=== PATIENT | male | born 1995 | race Caucasian/White ===

== ENCOUNTER 2023-10-23 00:04 | Inpatient (IN) | payer OTHER ==
[~2023-10-23] VITALS: Ht 185.4 cm; Wt 77.1 kg
[2023-10-23] VITALS (16 sets, daily range): BP systolic 95–133; BP diastolic 43–96
[2023-10-23] MEDS ORDERED: Ondansetron HCl 2 MG / ML 2ML Vial IV ONE (00:25)
[2023-10-23] MEDS ORDERED: Ketorolac Tromethamine 30mg Vial IV ONE (00:25)
[2023-10-23] MEDS ORDERED: Colchicine 0.6 MG TAB PO ONE (00:25)
[2023-10-23 00:39] LABS: Calcium, Ionized (POC) 1.09 mmol/L (1.10-1.46); Chloride (POC) 103 mmol/L (98-108); Glucose (ISTAT POC) 127 mg/dL (70-99); Hemoglobin (POC) 14.6 g/dL (13.5-17.5); Potassium (POC) 3.2 mmol/L (3.5-5.5); Sodium (POC) 139 mmol/L (135-148); Total CO2 (POC) 20 mmol/L (21-32)
[2023-10-23 00:50] LABS: Hematocrit 41.5 % (37.0-53.0); Mean Corpuscular HGB 29.5 pg (26.0-34.0); Mean Corpuscular HGB Conc 36.1 g/dL (31.5-36.5); Mean Corpuscular Volume 82 fL (80-100); Mean Platelet Volume 9.5 fL (9.1-12.4); Platelet Count 351 K/mm3 (150-400); RDW Coefficient Variation 12.1 % (11.7-14.2); RDW Standard Deviation 35.9 fL (35.1-46.3); Red Blood Cell Count 5.09 M/mm3 (4.30-5.90); White Blood Cell Count 9.63 K/mm3 (4.00-11.30)
[2023-10-23 01:03] LABS: Albumin, Blood 3.4 g/dL (3.4-5.0); Albumin/Globulin Ratio 0.9 (0.8-1.8); Bilirubin, Total 0.5 mg/dL (0.1-1.0); Bun/Creatinine Ratio 7.8 (12.0-20.0); C-REACTIVE PROTEIN, EXT RANGE 2.99 mg/dL (0.000-0.300); Calcium, Blood 8.8 mg/dL (8.5-10.1); Creatinine, Blood 1.03 mg/dL (0.60-1.20); Globulin, Blood 3.8 g/dL (2.2-4.0); Potassium, Blood 3.4 mmol/L (3.5-5.5); Total Protein, Blood 7.2 g/dL (6.4-8.2)
[2023-10-23 01:27] LABS: BASOPHILS ABSOLUTE MAN 0.09 K/mm3 (0.00-0.23); BASOPHILS PERCENT MAN 1 % (0-2); EOSINOPHILS ABSOLUTE MAN 0.28 K/mm3 (0.00-0.68); EOSINOPHILS PERCENT MAN 3 % (0-6); LYMPHOCYTES % ATYPICAL MANUAL 6 % (0-0); LYMPHOCYTES ABSOLUTE MAN 4.71 K/mm3 (0.84-5.20); LYMPHOCYTES PERCENT MAN 43 % (21-46); MONOCYTES ABSOLUTE MAN 1.25 K/mm3 (0.16-1.47); MONOCYTES PERCENT MAN 13 % (4-13); NEUTROPHILS ABSOLUTE MAN 3.27 K/mm3 (1.96-9.15); SEG NEUTROPHILS PERCENT MAN 34 % (41-73); TOTAL CELLS COUNTED 100
[2023-10-23] MEDS ORDERED: FentaNYL Citrate 50 MCG/ML 2 ML Injection IV PRN (02:10)
[2023-10-23] MEDS ORDERED: Acetaminophen 325 MG TABLET PO PRN (02:15)
[2023-10-23] MEDS ORDERED: Ondansetron HCl 2 MG / ML 2ML Vial IV PRN (02:15)
[2023-10-23] MEDS ORDERED: Potassium Chloride 20 MEQ TabCR PO ONE (04:00)
[2023-10-23] MEDS ORDERED: NS 1,000 ML IV SCH (04:00)
[2023-10-23] MEDS ORDERED: Ketorolac Tromethamine 15mg Vial IV PRN (04:05)
--- NOTE | 2023-10-23 05:24 | NUR ---
SHIFT SUMMARY PT ARRIVED FROM ER AROUND 0400. ORIENTED TO ROOM AND PROVIDED WITH WATER AND SNACKS. AT BEDSIDE. PT A&OX4 AND PLEASANT. NO C/O CP OR SOB. CONSULT MADE TO CARDIOLOGY. INDEPENDENT IN ROOM. VSS. BED IN LOWEST POSITION AND CALL LIGHT IN REACH.
[2023-10-23] MEDS ORDERED: Aspirin 81 MG Chew PO ONE (08:10)
[2023-10-23] MEDS ORDERED: Heparin Sodium 5000 Units/ML 1ML MDV IV ONE (08:10)
[2023-10-23] MEDS ORDERED: NS 1,000 ML IV ONE ×2 (08:18→08:41)
[2023-10-23] MEDS ORDERED: Heparin Sodium 1000 Units/ML 10ML MDV ONE ×2 (08:18→08:42)
[2023-10-23] MEDS ORDERED: NiCARdipine HCL 1,000 MCG/5 ML SYR ONE (08:18)
[2023-10-23] MEDS ORDERED: Nitroglycerin 2 MG/20 ML BTL ONE (08:18)
[2023-10-23] MEDS ORDERED: NS 250 ML IV ONE (08:18)
--- NOTE | 2023-10-23 08:28 | NUR ---
0800 DR BOONE IN ROOM. ORDRES FOR 325 ASA, 5000 UNITS HEPARIN PUSH. CONSENT FORM, CALL [employer]CIALS CONSULTANT, PT TO [facility] FIRST CASE. PT OUT TO [employer] CONSULTANT 0825
--- NOTE | 2023-10-23 08:29 | NUR ---
0800 PT A/O X4 DENIES CHEST PAIN OR SOB. H/R REG, NO MURMUR NOTED. NO EDEMA, PER TELE NSR AT 64. LUNGS CLEAR, RESP EASY, UNLABORED. ON R.A. BT X4 LAST BM YEST, VIODS INDEPENDANT TO BATHROOM. DENIES STOMACHE UPSET. DR BOONE IN ROOM. PT TO GO TO [facility] THIS AM. BED IN LOW POSITION, CALL LITE IN REACH, CALLS APPROP
[2023-10-23] MEDS ORDERED: FentaNYL Citrate 50 MCG/ML 2 ML Injection ONE (08:42)
[2023-10-23] MEDS ORDERED: Midazolam HCl 1MG / ML 2ML Vial ONE (08:42)
[2023-10-23] MEDS ORDERED: Enoxaparin 40 MG/0.4 ML SYR SC SCH (09:00)
[2023-10-23] MEDS ORDERED: Colchicine 0.6 MG TAB PO SCH (09:00)
--- NOTE | 2023-10-23 09:24 | NUR ---
arrival to pcu patient arrived to pcu from [facility] at 0918 and transfered from wheelchair to pcu bed. patient is alert and oriented x4. neuro is intact. perrla. patient is able to make needs known and uses call light appropriately. patient has a right radial site, soft nontender, no bleeding. patient does report numbness and tingling, but has improved. tr band with air in at 0906 with 10cc in it. bedside report done with heart center nurse.
[2023-10-23 10:10] LABS: Hematocrit 38.7 % (37.0-53.0); Hemoglobin 13.4 g/dL (13.5-17.5); Mean Corpuscular HGB 29.6 pg (26.0-34.0); Mean Corpuscular HGB Conc 34.6 g/dL (31.5-36.5); Mean Corpuscular Volume 85 fL (80-100); Mean Platelet Volume 9.4 fL (9.1-12.4); Platelet Count 284 K/mm3 (150-400); RDW Coefficient Variation 12.3 % (11.7-14.2); RDW Standard Deviation 38.5 fL (35.1-46.3); Red Blood Cell Count 4.53 M/mm3 (4.30-5.90); White Blood Cell Count 8.94 K/mm3 (4.00-11.30)
[2023-10-23 10:38] LABS: Albumin, Blood 2.9 g/dL (3.4-5.0); Albumin/Globulin Ratio 0.9 (0.8-1.8); Bilirubin, Total 0.3 mg/dL (0.1-1.0); Bun/Creatinine Ratio 9.9 (12.0-20.0); Calcium, Blood 8.3 mg/dL (8.5-10.1); Creatinine, Blood 0.91 mg/dL (0.60-1.20); Globulin, Blood 3.4 g/dL (2.2-4.0); Potassium, Blood 4.4 mmol/L (3.5-5.5); Total Protein, Blood 6.3 g/dL (6.4-8.2)
[2023-10-23 11:50] LABS: BASOPHILS PERCENT MAN 0 % (0-2); EOSINOPHILS ABSOLUTE MAN 0.08 K/mm3 (0.00-0.68); EOSINOPHILS PERCENT MAN 1 % (0-6); LYMPHOCYTES % ATYPICAL MANUAL 4 % (0-0); LYMPHOCYTES ABSOLUTE MAN 3.75 K/mm3 (0.84-5.20); LYMPHOCYTES PERCENT MAN 38 % (21-46); MONOCYTES ABSOLUTE MAN 0.44 K/mm3 (0.16-1.47); MONOCYTES PERCENT MAN 5 % (4-13); NEUTROPHILS ABSOLUTE MAN 4.64 K/mm3 (1.96-9.15); SEG NEUTROPHILS PERCENT MAN 52 % (41-73); TOTAL CELLS COUNTED 100
[2023-10-23 13:26] LABS: SARS-Cov-2 (COVID-19) PCR, MMC NEGATIVE (NEGATIVE)
--- NOTE | 2023-10-23 15:54 | NUR ---
tr band removal tr band removed and new dressing in place. right radial site care went over with patient. patient verbalized understanding
[2023-10-23] MEDS ORDERED: HyDROXyzine HCl 10 MG Tab PO PRN (17:30)
--- NOTE | 2023-10-23 18:04 | NUR ---
chest pain/shift summary patiant called this rn to the room around 1625 complaining of chest pain similar to what brought him into the hospital and numbness and tingling in arms. patient stated pain started approx 20mins prior to him calling. this rn educated to call when pain initially starts. this rn medicated patient with iv toradol. patient still in pain rating it at 4/10, on scale of 0-10 with 10 being the worst pain. patient received 25mcg of fentanyl for pain, and expressed no relief. this rn gave additional dose of 25mcg of fentanyl after discussing with nathanael rn and taking vital signs. blood pressure stable and heart rate is bradycardia 48-50s at this time. md cardenas called and an ekg order. md cao into room and reviewed ekg and spoke with patient and patient . md cao updated on lowest heart rate of 38. per telecommunications analyst bradycardia started at 1618, which is before the fentanyl was given. md cao spoke with md tafoya discussed the events and ordered po hydroxyzine as needed for anxiety. when this rn came back from break patient was asleep and said he doesn't need it at this time and will call if he needs it. patient and eeducated on paracarditis and the signs and symptoms of this and what to be expected. discussed medications used to help with the inflammation and pain. patient and verbalized understanding. md cao educated patient on current treatment plan to help manage pain and inflammation. md cardenas in to see the patient as well and discussed plan of care and educated. per md ronald cao is in contact with md patterson and discussing the patients symptoms. plan is up to date at this time.
[2023-10-24] MEDS ORDERED: Ketorolac Tromethamine 15mg Vial IV SCH
[2023-10-24 00:04] VITALS: BP 112/66
--- NOTE | 2023-10-24 02:48 | NUR ---
ASSUMED CARE OF PT AT 1900 PT AOX4 IN BED WITH SO AT BEDSIDE. PT CALM/COOPERATIVE. BED IN LOWEST POSITION, UPPER SIDE RAILS UP, BRAKE ON. CALL LIGHT AND BEDSIDE TABLE IN REACH. TELEMETRY ON. [facility] CATH SITE WNL, TEGADERM DRESSING INTACT.
[2023-10-24 04:01] VITALS: BP 108/63
--- NOTE | 2023-10-24 04:07 | NUR ---
PT REMAINS CHEST PAIN FREE. NO SHORTNESS OF BREATH OR DIAPHORESIS. PT HAS BEEN RESTING COMFORTABLY ALL NIGHT.
[2023-10-24] MEDS ORDERED: Omeprazole 20 MG CapCR PO SCH (07:46)
[2023-10-24] MEDS ORDERED: Ibuprofen 600 MG Tab PO SCH (08:00)
[2023-10-24 08:12] LABS: Hematocrit 39.8 % (37.0-53.0); Hemoglobin 13.8 g/dL (13.5-17.5); Mean Corpuscular HGB 29.1 pg (26.0-34.0); Mean Corpuscular HGB Conc 34.7 g/dL (31.5-36.5); Mean Corpuscular Volume 84 fL (80-100); Mean Platelet Volume 9.4 fL (9.1-12.4); Platelet Count 307 K/mm3 (150-400); RDW Coefficient Variation 12.6 % (11.7-14.2); RDW Standard Deviation 38.7 fL (35.1-46.3); Red Blood Cell Count 4.74 M/mm3 (4.30-5.90); White Blood Cell Count 8.11 K/mm3 (4.00-11.30)
[2023-10-24 08:19] VITALS: BP 123/80
[2023-10-24 08:30] LABS: Albumin, Blood 3.1 g/dL (3.4-5.0); Albumin/Globulin Ratio 0.9 (0.8-1.8); Bilirubin, Total 0.6 mg/dL (0.1-1.0); Bun/Creatinine Ratio 11.3 (12.0-20.0); Calcium, Blood 8.5 mg/dL (8.5-10.1); Creatinine, Blood 0.8 mg/dL (0.60-1.20); Globulin, Blood 3.5 g/dL (2.2-4.0); Potassium, Blood 4.4 mmol/L (3.5-5.5); Total Protein, Blood 6.6 g/dL (6.4-8.2)
[2023-10-24 08:42] LABS: BAND PERCENT MAN 3 % (0-8); BASOPHILS PERCENT MAN 0 % (0-2); EOSINOPHILS ABSOLUTE MAN 0.24 K/mm3 (0.00-0.68); EOSINOPHILS PERCENT MAN 3 % (0-6); LYMPHOCYTES ABSOLUTE MAN 2.75 K/mm3 (0.84-5.20); LYMPHOCYTES PERCENT MAN 34 % (21-46); MONOCYTES ABSOLUTE MAN 0.81 K/mm3 (0.16-1.47); MONOCYTES PERCENT MAN 10 % (4-13); NEUTROPHILS ABSOLUTE MAN 4.21 K/mm3 (1.96-9.15); PLASMA CELL ABSOLUTE MAN 0.08 K/mm3 (0.00-0.00); PLASMA CELLS PERCENT MAN 1 % (0-0); SEG NEUTROPHILS PERCENT MAN 49 % (41-73); TOTAL CELLS COUNTED 100
--- NOTE | 2023-10-24 10:07 | NUR ---
AM NOTE this rn assumed care at 0700. vital signs stable. tele sinus rhyhm 70-80s. spo2 >95% on room air. patient is alert and oriented x4. neuro is intact. perrla. patient is independent in the room and is able to make needs known. patient denies chest pain/pressure this am, pain or shortness of breath. see shift assessment for further detials. md tafoya in to see patient and discussed plan of care. plan for patient to be active and do adls and see if patient has chest pain with exertion. md tafoya educated patient on current medication regimen. patient verbalized understanding.
[2023-10-24 11:18] VITALS: BP 139/81
[2023-10-24 15:25] VITALS: BP 122/94
--- NOTE | 2023-10-24 17:31 | NUR ---
SHIFT SUMMARY patient neuro remains intact. patient had multiple walks around the unit today and did not have chest pain but became dizzy. patient denies chest pain, pain or shortness of breath throughout the shift. no acute changes this shift. plan remains up to date and discharge tomorrow.
[2023-10-24 20:20] VITALS: BP 152/103
[2023-10-25 00:11] VITALS: BP 115/69
[2023-10-25 04:50] VITALS: BP 128/92
--- NOTE | 2023-10-25 06:38 | NUR ---
PT STABLE ALL SHIFT. NO C/O CP OR SOB. SLEPT MOST OF THE NIGHT. VITAL SIGNS STABLE. PT EAGER FOR D/C.
[2023-10-25 07:43] VITALS: BP 126/69
[2023-10-25 10:14] LABS: Albumin, Blood 3.1 g/dL (3.4-5.0); Albumin/Globulin Ratio 0.9 (0.8-1.8); Bilirubin, Total 0.3 mg/dL (0.1-1.0); Bun/Creatinine Ratio 9.9 (12.0-20.0); Calcium, Blood 8.5 mg/dL (8.5-10.1); Creatinine, Blood 0.81 mg/dL (0.60-1.20); Globulin, Blood 3.4 g/dL (2.2-4.0); Potassium, Blood 4.5 mmol/L (3.5-5.5); Total Protein, Blood 6.5 g/dL (6.4-8.2)
[2023-10-25 11:17] VITALS: BP 126/75
[2023-10-25] MEDS ORDERED: Acetaminophen325 M1 PO (11:18)
[2023-10-25] MEDS ORDERED: COLCHICINE0.6 MG PO (11:18)
[2023-10-25] MEDS ORDERED: Atarax10 MG PO (11:19)
[2023-10-25] MEDS ORDERED: IBUP600 PO (11:20)
[2023-10-25] MEDS ORDERED: OMEP20ER PO (11:20)
--- NOTE | 2023-10-25 13:07 | NUR ---
DISCHARGE: PT HAS BEEN CLEARED FOR DISCHARGE HOME. ALL IV ACCESS DC'd WNL. PT DRESSES SELF. DC PAPERWORK AND INSTRUCTIONS PROVIDED, ALL QUESTIONS HAVE BEEN ANSWERED. PT AMBULATES FROM UNIT INDEPENDENTLY.
== END 2023-10-25 13:01 | disposition home or self-care (01) | DRG 287 ==
LOC: ER 00:04 → MEDS 00:05 → PCU 00:05 → MEDS 00:05 → PCU 07:00
PROVIDERS: Family Medicine; Student in an Organized Health Care Education/Training Program; ADMIT Internal Medicine
PROC: 4A023N7 Measurement of Cardiac Sampling and Pressure, Left Heart, Percutaneous Approach (ICD-10-PCS; principal; 2023-10-23)
PROC: B2111ZZ Fluoroscopy of Multiple Coronary Arteries using Low Osmolar Contrast (ICD-10-PCS; 2023-10-23)
PROC: B2151ZZ Fluoroscopy of Left Heart using Low Osmolar Contrast (ICD-10-PCS; 2023-10-23)
PROC: B24BZZ3 Ultrasonography of Heart with Aorta, Intravascular (ICD-10-PCS; 2023-10-23)
DX: I30.9 Acute pericarditis, unspecified (principal); K52.9 Noninfective gastroenteritis and colitis, unspecified; E83.51 Hypocalcemia; E87.6 Hypokalemia; F90.9 Attention-deficit hyperactivity disorder, unspecified type
CPT/HCPCS: 36415; 71045; 76937; 80047; 80053; 83735; 83880; 84484; 85007; 85014; 85025; 85027; 85060; 86140; 93005; 93010; 93306; 93454; 96372; 96374-59; 96375; 96375-59; 96376; 99152; 99285-25; A9270; C1769; C1887; C1894; G0378; J1644; J1650; J1885; J2250; J2405; J3010; J7030; J7050; Q9967; U0002